=== PATIENT | male | born 1960 | race Caucasian/White ===

== ENCOUNTER 2019-02-02 18:53 | Emergency (ER) | payer SELFPAY ==
[2019-02-02 19:46] VITALS: BP 133/64; PULSE 74; TEMP 97.4; BMI 24.3
--- NOTE | 2019-02-02 22:04 | PDOC ---
History of Present Illness - General Chief Complaint: Pain Stated Complaint: RT LEG PAIN Time Seen by Provider: 02/02/19 19:50 - History of Present Illness Initial Comments: 02/02/19 22:02 58-year-old male without comorbidities presents for evaluation of right calf pain x1 week with recent travel a 6-hour flight from [facility] Past History - Past Medical History COPD: No - Psycho Social/Smoking Cessation Hx Smoking History: Never smoked Have you smoked in the past 12 months: No Information on smoking cessation initiated: No Hx Alcohol Use: No Drug/Substance Use Hx: No Review of Systems - Review of Systems Constitutional: No: Fever *Physical Exam - Vital Signs Last Vital Signs Temp Pulse Resp BP Pulse Ox 97.4 F L 74 17 133/64 100 02/02/19 19:40 02/02/19 19:40 02/02/19 19:40 02/02/19 19:40 02/02/19 19:40 - Physical Exam 02/02/19 22:02 Right thigh and calf skin color temperature normal soft and nontender without gross sensorimotor deficits neurovascular intact. 5 out of 5 strength bilateral lower extremities without gross sensorimotor deficits negative straight leg raise test bilaterally. ED Treatment Course - RADIOLOGY Radiology Studies Ordered: Category Date Time Status DUPLEX VASCUL US-1 LEG [US] Stat Ultrasound 02/02/19 20:08 Taken Medical Decision Making - Medical Decision Making 02/02/19 22:03 Negative Doppler most likely calf strain follow-up with orthopedics Discharge - Discharge Information Problems reviewed: Yes Clinical Impression/Diagnosis: Strain of calf muscle Condition: Stable Disposition: HOME - Admission No - Follow up/Referral Referrals: Jorge Solorzano DO [Staff Physician] - - Patient Discharge Instructions Additional Instructions: Your ultrasound was negative today for clot. You may take Tylenol as directed for pain. Return to the emergency room for worsening symptoms. Without fail please follow-up with orthopedic surgery in 2 to 3 days for further evaluation and treatment options. - Post Discharge Activity
== END 2019-02-02 22:30 | disposition home or self-care (01) ==
LOC: JERFT 18:53
DX: S86.111A Strain of other muscle(s) and tendon(s) of posterior muscle group at lower leg level, right leg, initial encounter (principal); X50.1XXA Overexertion from prolonged static or awkward postures, initial encounter; Y93.89 Activity, other specified; Y92.89 Other specified places as the place of occurrence of the external cause; Y99.8 Other external cause status
CPT/HCPCS: 93971-TC; 99281-25